=== PATIENT | male | born 2000 | race Caucasian/White ===

== ENCOUNTER 2021-07-05 06:18 | Observation (INO) ==
--- NOTE | 2021-07-05 07:06 | Emergency Department Note ---
History of Present Illness General Chief complaint: Hand Injury/Pain Stated complaint: RIGHT HAND SWELLING,PAIN - WORK RELATED Time Seen by Provider: 07/05/21 06:59 History of Present Illness Maximum Pain Intensity: 4 This is a 20-year-old otherwise healthy male that presents to the emergency department via private vehicle with complaints of "right hand swelling, pain, work-related". The patient notes that about 1.5 hours ago he was at work. He states that a metal beam was dropped onto his hand accidentally. This was his right hand. He is right-hand dominant. He notes numbness/tingling in digits 3, 4 and 5 of the right hand. He was not wearing any gloves. He does note a wound to the dorsum of the right hand overlying the fifth metacarpal region. He believes his tetanus is up-to-date. No other injuries. No pertinent past medical history, surgeries or allergies. Patient estimates that the weight of the metal struck his hand to be about 50 to 75 pounds. He states that as it was landing onto the dorsum of his right hand, the palmar aspect of the hand was against concrete. Home Medications Medication Instructions Recorded Confirmed Type ibuprofen 200 mg tablet (Advil) 200 mg PO Q6H PRN 07/05/21 07/05/21 History Allergies Allergy/AdvReac Type Severity Reaction Status Date / Time No Known Allergies Allergy Unknown ? Verified 07/05/21 07:46 Past Med/Surg History Medical History No chronic diseases present Surgical History No significant past surgical history Social History Smoking Status: Never smoker Preferred Language: Urdu Feels Safe at Home: Yes Review of Systems A total of 6 systems reviewed and were otherwise negative Physical Exam Vital Signs Vital Signs - 24 hr 07/05/21 06:24 07/05/21 08:34 07/05/21 10:34 Temperature 36.6 C Temperature Source Temporal Artery Scan Pulse Rate 63 Pulse Rate [Right] 68 87 Pulse Rhythm [Right] Respiratory Rate 18 18 16 Respiratory Effort / Characteristics Non-Labored Spontaneous Respiratory Depth Normal Blood Pressure 164/106 H Blood Pressure [Left Arm] 149/92 H 153/86 H Blood Pressure Mean 125 Blood Pressure Mean [Left Arm] 111 108 Blood Pressure Position [Left Arm] Lying Lying Pulse Oximetry 97 98 95 Oxygen Delivery Method Room Air Room Air Room Air Sepsis New/Unexplained Change in Mental Status N/A Sepsis Action Taken by Nursing No Action Required 07/05/21 12:00 07/05/21 12:59 Temperature 37 C Temperature Source Oral Pulse Rate Pulse Rate [Right] 64 76 Pulse Rhythm [Right] Regular Respiratory Rate 18 20 Respiratory Effort / Characteristics Non-Labored Spontaneous Non-Labored Spontaneous Respiratory Depth Normal Normal Blood Pressure Blood Pressure [Left Arm] 157/81 H 164/97 H Blood Pressure Mean Blood Pressure Mean [Left Arm] 106 119 Blood Pressure Position [Left Arm] Lying Lying Pulse Oximetry 99 100 Oxygen Delivery Method Room Air Room Air Sepsis New/Unexplained Change in Mental Status Sepsis Action Taken by Nursing VITAL SIGNS - Vital signs and nursing notes were reviewed. Stable and afebrile. GENERAL - 20-year-old male appearing his stated age who is in no acute distress. Communicates well with provider and answers questions appropriately. SKIN -there is a 0.5 cm linear wound overlying the dorsum of the right fifth metacarpal distally. Minor bleeding from the wound is noted. There are no visualized protruding fracture fragments from the wound channel however I will note that where the wound is located that is the most edematous portion/dorsally protruded portion of the right fifth metacarpal EXTREMITIES - No clubbing or peripheral cyanosis. Preserve range of motion of the right hand noted with care taken so as to not shift suspected fracture fragment of the right fifth metacarpal. Cap refill of all digits of the right hand within normal limits. Right radial pulse intact. Wound as noted above. Obvious deformity to the right fifth distal metacarpal +5/5 strength noted in UE/LE bilaterally. Patient neurovascularly intact in the right upper extremity. Course Administered Medications Sodium Chloride (Nss 1000ml) 1,000 mls @ 15 mls/hr IV .Q24H JUAN Stop: 08/04/21 10:29 Last Infusion: 07/05/21 15:00 Dose: 0 mls/hr Documented by: [id number] Admin: 07/05/21 12:06 Dose: 15 mls/hr Documented by: [id number] Cefazolin Sodium (Ancef 3000mg) 65 mls @ 130 mls/hr IV PREOP JUAN; Protocol Stop: 07/06/21 05:59 Last Admin: 07/05/21 15:00 Dose: 130 mls/hr Documented by: [id number] Discontinued Medications Diphtheria/Pertussis/Tetanus Vacc (Diphtheria/Tetanus/Pertussis 0.5 Ml Syr/Vial) 0.5 ml IM .ONCE ONE Stop: 07/05/21 07:50 Last Admin: 07/05/21 08:41 Dose: 0.5 ml Documented by: [id number] Cefazolin Sodium (Ancef 2000mg) 2,000 mg in 15 mls @ 3.75 mls/min IV NOW STA Stop: 07/05/21 07:17 Last Admin: 07/05/21 07:51 Dose: 3.75 mls/min Documented by: [id number] Morphine Sulfate (Morphine Sulfate 4 Mg/Ml 1 Ml Carp\\Vial) 4 mg IV NOW STA Stop: 07/05/21 10:36 Last Admin: 07/05/21 10:55 Dose: 4 mg Documented by: [id number] Ondansetron HCl (Ondansetron Inj 2 Mg/Ml 2 Ml Vial) 4 mg IV NOW STA Stop: 07/05/21 10:36 Last Admin: 07/05/21 11:12 Dose: 4 mg Documented by: [id number] Medical Decision Making Laboratory Data Result diagrams: 07/05/21 07:46 07/05/21 09:10 Lab Results 07/05/21 07/05/21 07/05/21 Range/Units 07:46 07:46 07:54 WBC 7.51 (4.8-10.8) K/uL RBC 4.98 (4.7-6.1) M/uL Hgb 14.9 (14.0-18.0) g/dL Hct 43.9 (42-52) % MCV 88.2 (80-100) fL MCH 29.9 (25-34) pg MCHC 33.9 (32-36) g/dL RDW Std Deviation 42.1 (36.4-46.3) fL RDW Coeff of Valente 13.1 (11.5-14.5) % Plt Count 236 (130-400) K/uL MPV 9.3 (7.4-10.4) fL Immature Gran % (Auto) 0.1 % Neut % (Auto) 60.0 % Lymph % (Auto) 30.8 % [place] % (Auto) 7.5 % Eos % (Auto) 1.2 % Baso % (Auto) 0.4 % Neut # (Auto) 4.51 (1.4-6.5) K/uL Lymph # (Auto) 2.31 (1.2-3.4) K/uL [place] # (Auto) 0.56 (0.11-0.59) K/uL Eos # (Auto) 0.09 (0-0.5) K/uL Baso # (Auto) 0.03 (0-0.2) K/uL Immature Gran # (Auto) 0.01 (0.00-0.02) K/uL Sodium 137 (136-145) mmol/L Potassium TNP Chloride 105 (98-107) mmol/L Carbon Dioxide 24 (21-32) mmol/L Anion Gap 8 (3-11) BUN 13 (6-23) mg/dl Creatinine 0.92 (0.6-1.4) mg/dl Est Cr Clr Drug Dosing 174.1 ml/min Est GFR ( Amer) 138.3 ml/min Est GFR (Non-Af Amer) 119.3 ml/min BUN/Creatinine Ratio 14.1 (10-20) Glucose 102 H (70-99(Fasting)) mg/dl Calcium 9.7 (8.5-10.1) mg/dl SARS-CoV-2, RNA, NAAT NEGATIVE (NEGATIVE) 07/05/21 Range/Units 09:10 WBC (4.8-10.8) K/uL RBC (4.7-6.1) M/uL Hgb (14.0-18.0) g/dL Hct (42-52) % MCV (80-100) fL MCH (25-34) pg MCHC (32-36) g/dL RDW Std Deviation (36.4-46.3) fL RDW Coeff of Valente (11.5-14.5) % Plt Count (130-400) K/uL MPV (7.4-10.4) fL Immature Gran % (Auto) % Neut % (Auto) % Lymph % (Auto) % [place] % (Auto) % Eos % (Auto) % Baso % (Auto) % Neut # (Auto) (1.4-6.5) K/uL Lymph # (Auto) (1.2-3.4) K/uL [place] # (Auto) (0.11-0.59) K/uL Eos # (Auto) (0-0.5) K/uL Baso # (Auto) (0-0.2) K/uL Immature Gran # (Auto) (0.00-0.02) K/uL Sodium (136-145) mmol/L Potassium 3.8 Chloride (98-107) mmol/L Carbon Dioxide (21-32) mmol/L Anion Gap (3-11) BUN (6-23) mg/dl Creatinine (0.6-1.4) mg/dl Est Cr Clr Drug Dosing ml/min Est GFR ( Amer) ml/min Est GFR (Non-Af Amer) ml/min BUN/Creatinine Ratio (10-20) Glucose (70-99(Fasting)) mg/dl Calcium (8.5-10.1) mg/dl SARS-CoV-2, RNA, NAAT (NEGATIVE) Imaging Data Radiologist's Impression: Hand X-Ray 07/05/21 06:33 XR hand RT min 3V routine CLINICAL HISTORY: Extremity trauma. COMPARISON: None FINDINGS: Carpal bones are intact. Note is made of an acute comminuted oblique displaced fracture through the shaft of the right fifth metacarpal. Fracture is significantly displaced with 1 cm of dorsal displacement of the metacarpal head with respect to the shaft. Adjacent soft tissue swelling is present. No additional acute fractures are present. IMPRESSION: Acute oblique comminuted markedly displaced right fifth metacarpal fracture, as described above. ACT 112: Negative or not required by law. Electronically signed by: Andry Matos M.D. 07/05/2021 7:21 AM MDM Narrative Patient was seen and evaluated as above in room C11. Review was performed of nursing notes and vital signs. I did review pertinent previous visits and patient history. After obtaining a thorough history and physical examination the above work up was performed. Patient is right-hand dominant. He presents to us today with an isolated injury to his right hand. Specifically it appears that he has an injury to the right fifth metacarpal. Mechanism of injury is concerning for a crush type mechanism. The piece of metal was dropped onto his right hand. There is a wound overlying the distal, dorsal aspect of the right fifth metacarpal region. There are no visualized bony fragments within the wound channel however based upon mechanism, deformity, wound appearance an open fracture was considered. Patient initially declined pain medication. Options of care were discussed with the patient. IV access was established. Labs were drawn. Patient already had imaging prior to be seen the patient. There is an obvious fracture with displacement to the distal right fifth metacarpal. He is right-hand dominant. He was given 2 g of IV Ancef over concern for possible open fracture. I did review the patient's EMR and it appears that his last tetanus vaccine was in 2012. Patient notes the piece of metal was not clean. He was not wearing any gloves. Patient NPO. He has not had any food he notes in about 8 hours. Patient respectfully declined pain medication. I cleansed the wound with sterile saline. I visualized the wound and correlated this with the patient's x-ray. The wound is directly overlying the fracture site. Patient further clarified the mechanism of injury and it appears that the piece of metal was fairly heavy and then fell onto his hand. Tdap/Adacel was ordered noting that it has been about 8.5 years since his last vaccine (10/30/12) per review of the record here and the patient's wound appears to be a crush type wound from metal that was khadijah. No leukocytosis or concerning anemia. No emergent metabolic disturbance. COVID-negative. With the concern for potential open fracture noting mechanism of injury and fracture pattern, I did find it reasonable to discuss the case with the on-call orthopedic service. They came to evaluate the patient. Irrigation of the wound was performed and he was also placed in a well-padded bulky dressing. Patient will be taken to the operative suite for further evaluation and management. Patient then noted some discomfort and would like something for pain. He was given IV morphine and IV Zofran here for his symptoms. Please refer to further documentation regarding his stay. Case was discussed with the attending physician. GCS: 15 In the evaluation and treatment of this patient the following differential diagnoses were entertained: Fracture, dislocation, subluxation, contusion, open fracture, among others. Impression & Plan Displaced fracture of neck of right fifth metacarpal bone, Open fracture Discharge Plan Visit Data Chief Complaint: Hand Injury/Pain Stated Complaint: RIGHT HAND SWELLING,PAIN - WORK RELATED ED Provider: [facility] Midlevel Provider: Lee Wick Discharge Problem: Displaced fracture of neck of right fifth metacarpal bone, Open fracture Patient Disposition: Being Evaluated by Surgeon Condition: Good Discharge Instructions Interventions: ED Discharge Assessment Last Done: 07/05/21 12:40
[2021-07-05] MEDS ORDERED: ceFAZolin 2000MG 2,000 MG/15 ML SYR IV STA (07:14)
--- NOTE | 2021-07-05 07:22 | XRay Report ---
XR hand RT min 3V routine CLINICAL HISTORY: Extremity trauma. COMPARISON: None FINDINGS: Carpal bones are intact. Note is made of an acute comminuted oblique displaced fracture th rough the shaft of the right fifth metacarpal. Fracture is significantly displaced with 1 cm of dorsa l displacement of the metacarpal head with respect to the shaft. Adjacent soft tissue swelling is pre sent. No additional acute fractures are present. IMPRESSION: Acute oblique comminuted markedly displaced right fifth metacarpal fracture, as described above. ACT 112: Negative or not required by law. Electronically signed by: Andry Matos M.D. 07/05/2021 7:21 AM
[2021-07-05] MEDS ORDERED: DIPHTHERIA/TETANUS/PERTUSSIS 0.5 ML SYR/VIAL IM ONE (07:49)
[2021-07-05 08:06] LABS: Basophils # (auto) 0.03 K/uL (0-0.2); Basophils % (auto) 0.4 %; Eosinophils # (auto) 0.09 K/uL (0-0.5); Eosinophils % (auto) 1.2 %; Hematocrit (blood only) 43.9 % (42-52); Hemoglobin 14.9 g/dL (14.0-18.0); Immature Granulocytes # (auto) 0.01 K/uL (0.00-0.02); Immature Granulocytes % (auto) 0.1 %; Lymphocytes # (auto) 2.31 K/uL (1.2-3.4); Lymphocytes % (auto) 30.8 %; Mean Corpuscular Hemoglobin 29.9 pg (25-34); Mean Corpuscular Hgb Conc 33.9 g/dL (32-36); Mean Corpuscular Volume 88.2 fL (80-100); Mean Platelet Volume 9.3 fL (7.4-10.4); Monocytes # (auto) 0.56 K/uL (0.11-0.59); Monocytes % (auto) 7.5 %; Neutrophils # (auto) 4.51 K/uL (1.4-6.5); Platelet Count 236 K/uL (130-400); RDW Coefficient of Variation 13.1 % (11.5-14.5); RDW Standard Deviation 42.1 fL (36.4-46.3); Red Blood Count 4.98 M/uL (4.7-6.1); White Blood Count 7.51 K/uL (4.8-10.8)
[2021-07-05 08:39] LABS: Anion Gap 8 (3-11); BUN Creatinine Ratio 14.1 (10-20); Blood Urea Nitrogen 13 mg/dl (6-23); Calcium 9.7 mg/dl (8.5-10.1); Carbon Dioxide 24 mmol/L (21-32); Chloride 105 mmol/L (98-107); Creatinine Clr Calc Pharmacy 174.1 ml/min; Est GFR (African American) 138.3 ml/min; Est GFR (Non-African American) 119.3 ml/min; Glucose 102 mg/dl (70-99(Fasting)); Sodium 137 mmol/L (136-145)
--- NOTE | 2021-07-05 09:36 | Orthopedic Consultation ---
Date of Consultation July 05, 2021 Assessment & Plan (1) Displaced fracture of neck of right fifth metacarpal bone: Reviewed the x-rays and discussed case with Dr. Hannah. He recommended that the lacerated area the cleansed and irrigated copiously. This was done by the emergency department staff. He also recommended placing a Betadine soaked 4 x 4/dressing over the fracture site and placing an ulnar gutter splint on the patient's right hand. Dr. Phillips is the surgeon on-call today. When he is finished with this first case in the OR we will discuss what type of management he would like to proceed with. I advised the patient that there is a high possibility that he will need surgical intervention to reduce the fracture, possibly place a plate/ screws on it and irrigated sometime later today. Patient is in agreement. He states that he has been n.p.o. since midnight. History of Present Illness Reason for Consultation: Open, Displaced, comminuted fracture to the right fifth metacarpal Requesting Physician: Dr. Monroe Phillips History of Present Illness This 20-year-old male seen in consultation for an open fracture to his right fifth metacarpal with dorsal displacement after a metal I-beam fell onto his hand at work earlier this morning. Patient states that initially he had numbness and tingling affecting digits 3 4 and 5, however now he only has a tingling sensation at the tip of his fifth finger. He states that he is able to make complete fist and move the finger but does have discomfort when he does so. He was not wearing gloves when the injury occurred. He is right-hand dominant. Allergies Allergy/AdvReac Type Severity Reaction Status Date / Time No Known Allergies Allergy Unknown ? Verified 07/05/21 07:46 Home Medications Medication Instructions Recorded Confirmed Type ibuprofen 200 mg tablet (Advil) 200 mg PO Q6H PRN 07/05/21 07/05/21 History Patient History Medical History No chronic diseases present Surgical History No significant past surgical history Social History Smoking Status: Never smoker Preferred Language: Lithuanian Feels Safe at Home: Yes Review of Systems Review of Systems: All systems reviewed & are unremarkable except as noted in Subjective Physical Exam Physical Exam: Right hand: Patient has visible edema over the dorsal and ventral surface surrounding the fifth metacarpal. There is a 1 cm U-shaped laceration over the dorsal surface just proximal to the MCP joint. There is palpable displacement of the metacarpal head dorsally. Patient is able to resist flexion and extension at the DIP PIP and MCP joint in the affected finger with referred pain to the fracture site. He is able to make complete fist with referred pain as well. He is able to detect light sensation to touch over the pad of the digit but has a tingly sensation. His peripheral pulses 2+. His capillary fill is less than 2 seconds. He has appropriate dexterity of his remaining digits. He also has full range of motion of his wrist elbow and shoulder. He is neurovascularly intact in the right upper extremity. There is no active bleeding at present. Results & Data ([facility]) Vital Signs (Past 12 Hours) Vital Signs Temp Pulse Pulse Resp BP BP Pulse Ox 07/05/21 08:34 68 18 149/92 H 98 07/05/21 06:24 36.6 C 63 18 164/106 H 97 Diagnostic Findings Laboratory Results WBC 7.51 K/uL (4.8-10.8) 07/05/21 07:46 RBC 4.98 M/uL (4.7-6.1) 07/05/21 07:46 Hgb 14.9 g/dL (14.0-18.0) 07/05/21 07:46 Hct 43.9 % (42-52) 07/05/21 07:46 MCV 88.2 fL (80-100) 07/05/21 07:46 MCH 29.9 pg (25-34) 07/05/21 07:46 MCHC 33.9 g/dL (32-36) 07/05/21 07:46 RDW Std Deviation 42.1 fL (36.4-46.3) 07/05/21 07:46 RDW Coeff of Valente 13.1 % (11.5-14.5) 07/05/21 07:46 Plt Count 236 K/uL (130-400) 07/05/21 07:46 MPV 9.3 fL (7.4-10.4) 07/05/21 07:46 Immature Gran % (Auto) 0.1 % 07/05/21 07:46 Neut % (Auto) 60.0 % 07/05/21 07:46 Lymph % (Auto) 30.8 % 07/05/21 07:46 Price % (Auto) 7.5 % 07/05/21 07:46 Eos % (Auto) 1.2 % 07/05/21 07:46 Baso % (Auto) 0.4 % 07/05/21 07:46 Neut # (Auto) 4.51 K/uL (1.4-6.5) 07/05/21 07:46 Lymph # (Auto) 2.31 K/uL (1.2-3.4) 07/05/21 07:46 Price # (Auto) 0.56 K/uL (0.11-0.59) 07/05/21 07:46 Eos # (Auto) 0.09 K/uL (0-0.5) 07/05/21 07:46 Baso # (Auto) 0.03 K/uL (0-0.2) 07/05/21 07:46 Immature Gran # (Auto) 0.01 K/uL (0.00-0.02) 07/05/21 07:46 Sodium 137 mmol/L (136-145) 07/05/21 07:46 Potassium TNP 07/05/21 07:46 Chloride 105 mmol/L (98-107) 07/05/21 07:46 Carbon Dioxide 24 mmol/L (21-32) 07/05/21 07:46 Anion Gap 8 (3-11) 07/05/21 07:46 BUN 13 mg/dl (6-23) 07/05/21 07:46 Creatinine 0.92 mg/dl (0.6-1.4) 07/05/21 07:46 Est Cr Clr Drug Dosing 174.1 ml/min 07/05/21 07:46 Est GFR ( Amer) 138.3 ml/min 07/05/21 07:46 Est GFR (Non-Af Amer) 119.3 ml/min 07/05/21 07:46 BUN/Creatinine Ratio 14.1 (10-20) 07/05/21 07:46 Glucose 102 mg/dl (70-99(Fasting)) H 07/05/21 07:46 Calcium 9.7 mg/dl (8.5-10.1) 07/05/21 07:46 SARS-CoV-2, RNA, NAAT NEGATIVE (NEGATIVE) 07/05/21 07:54 Impressions Hand X-Ray 07/05/21 06:33 XR hand RT min 3V routine CLINICAL HISTORY: Extremity trauma. COMPARISON: None FINDINGS: Carpal bones are intact. Note is made of an acute comminuted oblique displaced fracture through the shaft of the right fifth metacarpal. Fracture is significantly displaced with 1 cm of dorsal displacement of the metacarpal head with respect to the shaft. Adjacent soft tissue swelling is present. No additional acute fractures are present. IMPRESSION: Acute oblique comminuted markedly displaced right fifth metacarpal fracture, as described above. ACT 112: Negative or not required by law. Electronically signed by: Andry Matos M.D. 07/05/2021 7:21 AM
[2021-07-05] MEDS ORDERED: SODIUM CHLORIDE 0.9% 1000ML 1,000 ML IV SCH (10:30)
[2021-07-05] MEDS ORDERED: MoRPHine SULFATE 4 MG/ML 1 ML CARP\\VIAL IV STA (10:35)
[2021-07-05] MEDS ORDERED: ONDANSETRON INJ 2 MG/ML 2 ML VIAL IV STA (10:35)
[2021-07-05] MEDS ORDERED: ePHEDrine sulfate 50 MG/ML AMP IV PRN (14:23)
[2021-07-05] MEDS ORDERED: ATROPINE SULFATE 0.1 MG/ML 10ML SYR IV PRN (14:23)
[2021-07-05] MEDS ORDERED: ONDANSETRON INJ 2 MG/ML 2 ML VIAL IV PRN ×3 (14:23→18:01)
[2021-07-05] MEDS ORDERED: fentaNYL citrate 100 MCG/2 ML VIAL IV PRN ×2 (14:23→15:24)
[2021-07-05] MEDS ORDERED: HYDROmorphone INJ 1 MG/ML SYRINGE IV PRN ×3 (14:23→18:01)
--- NOTE | 2021-07-05 14:26 | Anesthesiology Consultation ---
Date of Service July 05, 2021 Assessment & Plan (1) Encounter for pre-operative examination: Chart Review Chart Review: Acceptable Risk for Surgery and Patient NOT seen in Pre Admission Testing Consults Requested none History Surgery Operation Date: 07/05/21 08:20 Proposed Procedures p Incision and Drainage and Open Reduction Internal Fixation Right 5th Metacarpal Open Fracture - Monroe Phillips MD Height/Weight Height: 6 ft Weight: 123.8 kg Allergies Allergy/AdvReac Type Severity Reaction Status Date / Time No Known Allergies Allergy Unknown ? Verified 07/05/21 07:46 Medications Home Medications Medication Instructions Recorded Confirmed Last Taken ibuprofen 200 mg tablet (Advil) 200 mg PO Q6H PRN 07/05/21 07/05/21 07/04/21 22 :00 600 mg Active Medications Generic Name Dose Route Start Last Admin Trade Name Freq PRN Reason Stop Dose Admin Sodium Chloride 1,000 mls @ 15 mls/hr 07/05/21 10:30 07/05/21 12:06 Nss 1000ml IV 08/04/21 10:29 15 mls/hr .Q24H JUAN Administration NPO Date Last Intake of Fluids: 07/05/21 Time Last Intake of Fluids: 00:30 Date Last Intake of Solids: 07/05/21 Time Last Intake of Solids: 00:30 Past Medical History Medical History No chronic diseases present Past Surgical History Surgical History No significant past surgical history Social History Smoking Status: Never smoker Physical Exam Vital Signs Last Vital Signs Temp 37 C 07/05/21 12:59 Pulse 76 07/05/21 12:59 Resp 20 07/05/21 12:59 BP 164/97 H 07/05/21 12:59 Pulse Ox 100 07/05/21 12:59 Testing Laboratory Results 07/05/21 07:46 07/05/21 09:10
[2021-07-05] MEDS ORDERED: LIDOCAINE 2% 2 ML VIAL/AMP(20MG/ML) INFIL ONE (14:37)
[2021-07-05] MEDS ORDERED: MIDAZOLAM HCL 1 MG/ML 2ML VIAL ONE (14:37)
[2021-07-05] MEDS ORDERED: PROPOFOL IV EMULSION 10 MG/ML 20 ML VIAL IV ONE (14:37)
[2021-07-05] MEDS ORDERED: fentaNYL citrate 100 MCG/2 ML VIAL ONE (14:38)
[2021-07-05] MEDS ORDERED: ROPIVACAINE 0.5% 5 MG/ML 30 ML VIAL ONE (14:44)
[2021-07-05] MEDS ORDERED: EPINEPHrine INJ 1 MG/ML AMP ONE (14:45)
[2021-07-05] MEDS ORDERED: DEXAMETHASONE SOD INJ 4 MG/ML VIAL ONE ×2 (14:45→15:19)
[2021-07-05] MEDS ORDERED: ONDANSETRON INJ 2 MG/ML 2 ML VIAL ONE (15:19)
[2021-07-05] MEDS ORDERED: GLYCOPYRROLATE 0.2 MG/ML VIAL ONE (15:19)
[2021-07-05] MEDS ORDERED: KETOROLAC 30 MG/ML VIAL ONE (15:19)
[2021-07-05] MEDS ORDERED: KETAMINE 50 MG/5 ML SYRINGE ONE (15:19)
[2021-07-05] MEDS ORDERED: FLUMAZENIL 0.1 MG/1 ML 10 ML VIAL IV PRN (15:24)
[2021-07-05] MEDS ORDERED: PROMETHAZINE HCL 12.5 MG in SODIUM CHLORIDE 0.9% 50 ML IV PRN (15:24)
[2021-07-05] MEDS ORDERED: NALOXONE HCL 0.4 MG/1 ML VIAL/CARP IV PRN ×2 (15:24→18:01)
[2021-07-05] MEDS ORDERED: BUPIVACAINE 0.5 % 5 MG/1 ML MPF 30ML VIAL ONE (16:09)
[2021-07-05] MEDS ORDERED: LIDOCAINE 1% LOCAL 20 ML VIAL ONE (16:10)
--- NOTE | 2021-07-05 16:22 | Operative Report ---
Post Operative Report Pre & Post Diagnosis Operation Date: 07/05/21 08:20 Pre-Op Diagnosis: Grade 1 open fracture of the right hand fifth metacarpal Post-Op Diagnosis: Same I identified the patient and participated in the time-out.: Yes Procedure Operation Date: 07/05/21 08:20 Actual Procedures Irrigation and debridement and Open Reduction with Percutaneous Pinning of Right 5th Metacarpal Open Fracture(Right) - Monroe Phillips MD Surgeon Monroe Phillips MD Rotary Slicing Machine Operator EDWINA Whitehead. Tim Sam fellow. Estimated Blood Loss 3 Findings Consistent with Post-Op Diagnosis Specimens None Anesthesia Type General Regional Complications none Disposition Accompanied Patient To Recovery: No Disposition: Recovery Room Indications Patient is 20 years old. He sustained a grade 1 open fracture of his right hand fifth metacarpal in a work-related accident earlier today. Operative intervention consisting of irrigation debridement and surgical stabilization with hardware was recommended and he agreed to proceed. Description of Procedure Informed consent obtained. Patient identified. He identified the operative site as the right hand fifth metacarpal. I marked with my initials. Preop surgical timeout performed. Preop antibiotics given. He was taken to the operating room positioned supine on the OR table with the right arm on a hand ta ble. Anesthetic administered. DVT prophylaxis not indicated. A tourniquet was applied to the right arm. The arm was prescribed prepped and draped with Betadine in the usual sterile fashion. The metacarpal fracture was unstable. The wound communicated directly to the bone. The wound was only about 4 mm in size. Fluoroscopic guidance was utilized throughout the procedure. I opened up the traumatic laceration slightly angled towards the fifth ray for 1 to 1-1/2 cm proximally and distally. Blunt dissection was performed down through the subcutaneous tissues. The fracture hematoma was identified. This was evacuated. The extensor tendon for the fourth and fifth rays were identified preserved and protected. The fracture site was opened and distracted cleaned of soft tissue and hematoma and then irrigated with a liter of sterile saline bulb syringe. There was a longitudinal split in the fracture. This was stable and did not move. The dorsally displaced distal fragment was reduced and keyed into the proximal ulnar fragment and held with a instrument. I then inserted 2, 0.045 inch K wires distally from the fifth metacarpal head into the fourth metacarpal head. This gave good stability and anatomic alignment. This was confirmed in multiplanar fluoroscopy. Pins were confirmed to be within the bone based upon fluoroscopy and feeling of the cortex. Irrigation was again performed. The pins were cut outside the skin and Jurgan balls applied. The skin was closed with 4-0 nylon. The traumatic laceration was left open but approximated. The arm was cleaned with wet and dry sponges Xeroform 4 x 4's fluffs between the fingers and a resting volar hand splint supporting the wrist and fingers was applied. Patient was awakened from anesthesia difficulty taken to recovery in stable condition. There are no specimens or complications. Counts were correct blood loss was 3 cc. At the conclusion the operation spoke to patient mother informed of my findings and discussed postop instructions. He will be admitted to the hospital for IV antibiotics. Prior to start of the procedure the tourniquet was inflated to 225 mmHg after exsanguinating the limb with the Esmarch. The tourniquet was let down at the conclusion of the operation and meticulous hemostasis was achieved. Prior to the start of the procedure the arm was prescribed and the fingernails were cleaned. Fracture was stable as well as a longitudinal split. There was no rotational abnormality evident. Capillary refill remained intact. There was good bony contact between all 3 fragments. I attest to the content of the Intraoperative Record and any orders documented therein. Any exceptions are noted below.
--- NOTE | 2021-07-05 16:54 | Fluoroscopy Report ---
FL hand RT 3V RTN CLINICAL HISTORY: RT HAND ORIF TECHNIQUE: 4 views were obtained with the C-arm in the OR with the above procedure. Total fluoroscopy time was 29 seconds. Total skin dose was 0.38 mGy. Comparison: None available at the time of this dictation. FINDINGS/IMPRESSION: Intraoperative images were obtained of open reduction and internal fixation of t he right hand. Please correlate with intraoperative fluoroscopy and operative report. ACT 112: Negative or not required by law. Electronically signed by: Octavio Ochoa M.D. 07/05/2021 4:52 PM
--- NOTE | 2021-07-05 17:42 | Anesthesiology Progress Note ---
Date of Service July 05, 2021 Anesthesia Post Procedure Vital Signs Vital Signs: Temp Pulse Pulse Pulse Resp BP BP 07/05/21 17:35 68 16 124/83 07/05/21 17:25 97.7 F 58 L 14 128/71 07/05/21 17:15 75 13 129/79 07/05/21 17:05 66 17 126/69 07/05/21 16:55 68 15 130/70 07/05/21 16:45 60 13 120/65 07/05/21 16:35 62 13 115/61 07/05/21 16:28 97.0 F L 61 10 L 111/60 07/05/21 12:59 98.6 F 76 20 164/97 H 07/05/21 12:00 64 18 157/81 H 07/05/21 10:34 87 16 153/86 H 07/05/21 08:34 68 18 149/92 H 07/05/21 06:24 97.9 F 63 18 164/106 H Pulse Ox 07/05/21 17:35 98 07/05/21 17:25 97 07/05/21 17:15 97 07/05/21 17:05 100 07/05/21 16:55 100 07/05/21 16:45 100 07/05/21 16:35 98 07/05/21 16:28 99 07/05/21 12:59 100 07/05/21 12:00 99 07/05/21 10:34 95 07/05/21 08:34 98 07/05/21 06:24 97 Pain Intensity Right Hand: Pain Intensity: 6 Transfer of Care Handoff Completed per policy Notes Mental Status: alert / awake / arousable and participated in evaluation Patient Amnestic to Procedure: Yes Nausea / Vomiting: adequately controlled Pain: adequately controlled Airway Patency, RR, SpO2: stable & adequate BP & HR: stable & adequate Hydration State: stable & adequate Anesthetic Complications: no major complications apparent and Pt Satisfied with anesthetic care
[2021-07-05] MEDS ORDERED: traMADol HCL 50 MG TABLET PO PRN (18:01)
[2021-07-05] MEDS ORDERED: METOCLOPRAMIDE HCL INJ 5 MG/ML 2 ML VIAL IV PRN (18:01)
[2021-07-05] MEDS ORDERED: HYDROmorphone INJ 0.5 MG/0.5 ML SYR IV PRN (18:01)
[2021-07-05] MEDS ORDERED: MAGNESIUM HYDROXIDE SUSP 30 ML UDC PO PRN (18:01)
[2021-07-05] MEDS ORDERED: bisacodyL 10 MG SUPP PR PRN (18:01)
--- NOTE | 2021-07-05 18:07 | Operative Report ---
Post Operative Report Pre & Post Diagnosis Operation Date: 07/05/21 08:20 Pre-Op Diagnosis: RIGHT HAND SWELLING,PAIN - WORK RELATED Post-Op Diagnosis: RIGHT HAND SWELLING,PAIN - WORK RELATED I identified the patient and participated in the time-out.: Yes Procedure Operation Date: 07/05/21 08:20 Actual Procedures p Incision and Drainage and Open Reduction Internal Fixation with Percutaneous Pinning of Right 5th Metacarpal Open Fracture(Right) - Monroe Phillips MD Surgeon Sally Sam MD Global Implementation Manager EDWINA Whitehead. Tim Sam fellow. Estimated Blood Loss 3 Findings Consistent with Post-Op Diagnosis Consistent with post op diagnosis. Specimens No specimens. Description of Procedure I participated in prepping dressing and assisted Dr. Phillips during the procedure. Please see Dr. Phillips note. I attest to the content of the Intraoperative Record and any orders documented therein. Any exceptions are noted below. Supervising Physician Co-Signing Physician Notes Dr. Phillips
--- NOTE | 2021-07-05 18:56 | Orthopedic Progress Note ---
Date of Service July 05, 2021 Assessment & Plan (1) Open fracture: Admission and Anticipated Discharge Date Admission Date: July 05, 2021 Subjective Patient resting comfortably. Arm still blocked. Capillary refill less than 2 seconds. Surgical results are discussed. Plan for 24 hours of IV antibiotics. Will reassess tomorrow. Dressing clean and dry. Splint intact. Results & Data ([facility]) Vital Signs (Past 12 Hours) Vital Signs Temp Pulse Pulse Pulse Resp BP Pulse Ox 07/05/21 18:28 36.8 C 68 16 135/86 97 07/05/21 18:03 36.9 C 62 18 138/83 100 07/05/21 17:45 68 14 129/68 99 07/05/21 17:35 68 16 124/83 98 07/05/21 17:25 36.5 C 58 L 14 128/71 97 07/05/21 17:15 75 13 129/79 97 07/05/21 17:05 66 17 126/69 100 07/05/21 16:55 68 15 130/70 100 07/05/21 16:45 60 13 120/65 100 07/05/21 16:35 62 13 115/61 98 07/05/21 16:28 36.1 C L 61 10 L 111/60 99 07/05/21 12:59 37 C 76 20 164/97 H 100 07/05/21 12:00 64 18 157/81 H 99 07/05/21 10:34 87 16 153/86 H 95 07/05/21 08:34 68 18 149/92 H 98
[2021-07-05] MEDS: SODIUM CHLORIDE 0.9% 1000ML 1,000 ML IV SCH (20:59)
[2021-07-05] MEDS ORDERED: SENNA 8.6 MG TAB PO SCH (21:00)
[2021-07-05] MEDS: ACETAMINOPHEN 500 MG TAB PO SCH (21:14)
[2021-07-05] MEDS: DOCUSATE SODIUM 100 MG CAP PO SCH (21:14)
[2021-07-05] MEDS: oxyCODONE HCL IR 5 MG TAB (IMMEDIATE RELEASE) PO PRN (21:20)
[2021-07-05] MEDS: ceFAZolin 2000MG 2,000 MG/15 ML SYR IV SCH (22:10)
[2021-07-06] MEDS: ACETAMINOPHEN 500 MG TAB PO SCH ×2 (06:10→14:06)
[2021-07-06] MEDS: ceFAZolin 2000MG 2,000 MG/15 ML SYR IV SCH ×2 (06:14→14:54)
[2021-07-06] MEDS: SODIUM CHLORIDE 0.9% 1000ML 1,000 ML IV SCH (06:56)
[2021-07-06] MEDS ORDERED: MULTIVITAMIN TAB PO SCH (09:00)
[2021-07-06] MEDS: DOCUSATE SODIUM 100 MG CAP PO SCH (09:28)
--- NOTE | 2021-07-06 12:40 | Orthopedic Progress Note ---
Date of Service July 06, 2021 Assessment & Plan (1) Open fracture of fifth metacarpal bone: Plan: Patient doing well. I believe the block is still working in his right arm. Splint/dressings clean dry and intact, will change as an outpatient. ice as needed for pain and swelling. Elevate right above your heart to relieve pain and swelling. Allowed for full range of motion of your right shoulder and right elbow. Out of bed as tolerated. Regular diet as ordered. Currently on IV Ancef and his last dose is 4:00 this afternoon. Will allow for discharge after that Ancef doses completed. No need for oral antibiotics as discharge. He will be discharged with his parents. Follow-up as scheduled in approximately 2 days for dressing change. Discharge instructions were reviewed. All questions were answered and findings were discussed with Dr. Phillips. Admission and Anticipated Discharge Date Admission Date: July 05, 2021 Subjective Patient resting in bed, still with some tinging in right hand. Elevated on pillows. No complaints of nausea, vomiting. Has been out of bed. Physical Exam Musculoskeletal: Right arm splint clean and dry. Distal motor function normal, paresthesias in tips of fingers. Cap refill brisk. full ROM of right e lbow and right shoulder. Results & Data ([facility]) Vital Signs (Past 12 Hours) Vital Signs Temp Pulse Resp BP Pulse Ox 07/06/21 12:32 37 C 60 18 125/74 97 07/06/21 07:29 36.5 C 60 16 115/70 99 07/06/21 02:34 36.6 C 76 14 96/55 L 98
[2021-07-06] MEDS: oxyCODONE HCL IR 5 MG TAB (IMMEDIATE RELEASE) PO PRN (14:53)
--- NOTE | 2021-07-07 10:29 | Discharge Summary ---
Date of Service July 07, 2021 Discharge Data Procedures Performed Operation Date: 07/05/21 08:20 Actual Procedures p Incision and Drainage and Open Reduction Internal Fixation with Percutaneous Pinning of Right 5th Metacarpal Open Fracture(Right) - Monroe Phillips MD Hospital Course (1) Open fracture of fifth metacarpal bone: Patient presents to the emergency room on July 05, 2021 with complaints of right hand pain while working. He got his hand crushed between [address] dividers. He is right-hand dominant. He immediately presented to the emergency room where x-rays were taken. He was found to have an open right fifth metacarpal shaft fracture. Orthopedic consultation was obtained and surgical intervention was recommended. He was started on IV Ancef. He was set up for surgery that afternoon. He was made NPO. He then underwent an irrigation, debridement and percutaneous pinning of his right fifth open metacarpal fracture with Dr. Phillips. Surgery was performed with general anesthesia. He also had a peripheral nerve block. He tolerated the procedure well without any intraoperative complications. He was placed in a bulky hand dressing and splint. He was encouraged to ice and elevate his hand to relieve pain and swelling. Advised nonweightbearing of his right upper extremity. He was kept in the hospital in observation for 3 postoperative doses of IV Ancef. He was allowed out of bed as tolerated. Postoperatively he did well and did not develop any postoperative nausea, vomiting, fevers or chills. His vitals remained stable. He tolerated a regular diet. After his third dose of IV Ancef was completed he was discharged to his home in stable condition. He was sent home with oral pain medication which included Tylenol, Advil and oxycodone. He did not need any at home oral antibiotics. Discharge instructions were reviewed and provided. All questions were answered. He is scheduled for follow-up on Thursday, July 08, 2021 for dressing change. He will remain out of work. He understands and agrees with the plan.
== END 2021-07-06 16:06 | disposition home or self-care (01) ==
LOC: ED 06:18 → ASU 12:35 → 3E 12:35 → ASU 12:40